=== PATIENT | male | born 1980 | race Hispanic/Latino ===

== ENCOUNTER 2019-09-25 17:02 | Observation (INO) | payer SELFPAY ==
[~2019-09-25] VITALS: Ht 177.8 cm; Wt 90.3 kg
[2019-09-25 20:00] VITALS: BP 129/83
[2019-09-25] MEDS ORDERED: AZITHROMYCIN 250MG/NS 100 ML 100 ML IV SCH ×2 (20:00→20:27)
[2019-09-25] MEDS ORDERED: ALBUTEROL/IPRATROPIUM 3 ML NEB NEB PRN (20:00)
[2019-09-25] MEDS: DEXTROSE 5%/0.9% SOD CHL 1,000 ML IV SCH (20:20)
[2019-09-25] MEDS: CEFTRIAXONE SOD 1 GM/NS 50 ML 50 ML IV SCH (20:30)
[2019-09-25 21:00] VITALS: BP 129/83
[2019-09-25] MEDS ORDERED: AZITHROMYCIN 500MG/NS 250 ML 250 ML ONE (21:33)
[2019-09-25 22:23] VITALS: BP 129/83
--- NOTE | 2019-09-25 22:37 | NUR ---
NOTIFIED DR. LOPEZ REGARDING CONSULT
--- NOTE | 2019-09-25 22:39 | NUR ---
NOTIFIED DR. LEVY REGARDING CONSULT
[2019-09-26] VITALS (8 sets, daily range): BP systolic 116–141; BP diastolic 67–85
[2019-09-26 05:04] LABS: BASOPHILS % 0.1 % (0.0-1.0); HEMATOCRIT 37.4 % (38.2-49.6); HEMOGLOBIN 12.6 g/dL (14.0-18.0); LYMPHOCYTES # (AUTO) 0.8 (1.0-3.2); LYMPHOCYTES % 8.5 % (18.0-39.1); MEAN CORPUSCULAR HGB CONC 33.7 g/dL (31-35); MONOCYTES # (AUTO) 0.6 (0.2-0.8); MONOCYTES % 6.2 % (4.4-11.3); NEUTROPHILS # (AUTO) 8.1 (2.1-6.9); NEUTROPHILS % 83.1 % (38.7-80.0); PLATELET COUNT 381 x10e3/uL (140-360); RED BLOOD COUNT 4.35 x10e6/uL (4.3-5.7); RED CELL DISTRIBUTION WIDTH 13.4 % (11.7-14.4)
[2019-09-26 05:45] LABS: ALANINE AMINOTRANSFERASE 125 IU/L (0-55); ALBUMIN 3.2 g/dL (3.5-5.0); ALBUMIN/GLOBULIN RATIO 0.8 (0.8-2.0); ALKALINE PHOSPHATASE 58 IU/L (40-150); ANION GAP 14.4 mmol/L (8-16); BLOOD UREA NITROGEN 18 mg/dL (7-26); BUN/CREATININE RATIO 24 (6-25); CARBON DIOXIDE 21 mmol/L (22-29); CHLORIDE 108 mmol/L (98-107); CREATININE, SERUM 0.74 mg/dL (0.72-1.25); EST GLOMERULAR FILTRATION RATE > 60 ML/MIN (60-); GLUCOSE 146 mg/dL (74-118); POTASSIUM 4.4 mmol/L (3.5-5.1); SODIUM 139 mmol/L (136-145)
[2019-09-26] MEDS: DEXTROSE 5%/0.9% SOD CHL 1,000 ML IV SCH ×2 (05:58→13:16)
--- NOTE | 2019-09-26 06:27 | NUR ---
NOTIFIED MEDICAL INSURANCE CLERK THAT PATIENT DO NOT HAVE COVID TEST ORDER. MEDICAL INSURANCE CLERK SAID TO PUT COVID TEST ORDER PER PROTOCOL.
--- NOTE | 2019-09-26 07:45 | NUR ---
infectious disease consultation Patient seen and examined chart reviewed events noted This is a 39-year-old [place] male dictated
--- NOTE | 2019-09-26 08:57 | NUR ---
GAVE PACKET OF INFORMATION WITH COMMUNITY [employer] FOR ASSISTANCE WITH LOW TO NO INCOME TO PATIENT. RESOURCES THAT PATIENT MAY BE ABLE TO FOLLOW UP UPON DISCHARGE. PT EDUCATED ON EACH RESOURCE AND UNDERSTANDING HOW TO FOLLOW UP TO SEE IF QUALIFIED FOR EACH RESOURCE.
[2019-09-26] MEDS: DEXAMETHASONE SOD PHOS INJ 4 MG/ML VIAL IV SCH (13:10)
--- NOTE | 2019-09-26 13:48 | Diagnostic Imaging Report ---
X-ray chest AP portable Comparison: None History: Cough and shortness of breath Findings: The image was taken with shallow inspiratory effort that accentuates the lung markings. Central airways unremarkable. Heart size likely accentuated because of the technique. Mediastinum appears enlarged likely because of the technique and shallow inspiration. There is no pleural effusion. There is no pneumothorax. There is presence of bilateral diffuse distribution pulmonary interstitial and airspace opacities, more pronounced in the right middle and lower lung zone and diffusely in the left lung. The differential diagnosis would include viral pneumonitis. Visualized skeletal structures are unremarkable. Upper abdomen unremarkable. Impression: Technically suboptimal exam. There is presence of bilateral airspace and interstitial opacities which raises a strong suspicion for viral pneumonitis such as Covid pneumonia. Clinical correlation is recommended. Signed by: Osmani Hurst MD on 09/26/2019 1:45 PM
--- NOTE | 2019-09-26 14:04 | Consultation ---
DATE OF CONSULTATION: HISTORY OF PRESENT ILLNESS: Mr. Martinez is a very pleasant gentleman of 39. He has been sick for 2 weeks. He had fever for a week and then the last week he did have progressive cough, progressive shortness of breath, got worse. The patient came here. He is currently on 4 L of oxygen. The patient is being admitted. PAST MEDICAL HISTORY: Denies. PAST SURGICAL HISTORY: Denies. ALLERGIES: NKA. SOCIAL HISTORY: There is no smoking, drug abuse, or alcohol abuse. FAMILY HISTORY: Otherwise unremarkable. PHYSICAL EXAMINATION: GENERAL: Currently alert, oriented. VITAL SIGNS: Stable, currently afebrile. HEENT: He is not icteric. NECK: Supple. CHEST: Crackles bilateral. HEART: S1-S2. ABDOMEN: Soft. Bowel sounds present. EXTREMITIES: No edema. SKIN: No rash. IMPRESSION: Coronavirus disease-19, superimposed bacterial pneumonia, and hypoxemia. Rocephin 1 g daily for 5 days, azithromycin 500 mg daily for 3 days, and Decadron 6 mg daily for 10 days. It is too late for remdesivir. We will put him on Lovenox 40 mg subcu q.24 hours. To monitor his oxygenation. Recheck CBC. Recheck Chem panel. We will check HIV. We will follow. MD NANDO Young/MODL /[id number]
--- NOTE | 2019-09-26 15:54 | Consultation ---
DATE OF CONSULTATION: Pulmonary Critical Care Consultation CHIEF COMPLAINT: Cough and dyspnea and COVID-19 infection. HISTORY OF PRESENT ILLNESS: The patient is a 39-year-old man. He reports being sick for about 8 days. He has noted worsening dyspnea. He started having a cough several days ago. He also had some fevers. He noticed that his oxygen saturation was 88% as an outpatient. He came to the ER and is now on 2 L. He still has some dyspnea, but is eager to go home. PAST MEDICAL HISTORY: 1. No prior history of asthma. 2. No prior cardiac disease. PAST SURGICAL HISTORY: Noncontributory. SOCIAL HISTORY: The patient is not a smoker. He is not a drinker. ALLERGIES: THERE ARE NO KNOWN DRUG ALLERGIES. FAMILY HISTORY: The patient is not reporting any significant family history. REVIEW OF SYSTEMS: GENERAL: The patient is afebrile. The saturation is 98% on 2 L. The blood pressure is 132/82 and the pulse is 63. HEENT: No facial swelling or erythema. The oropharynx normal. LYMPHATIC: No submandibular, cervical, or supraclavicular adenopathy. CARDIAC: Regular rate and rhythm with normal S1, S2. LUNGS: Auscultation of lungs reveals rhonchorous breath sounds bilaterally. There is no wheezing. ABDOMEN: Soft, nontender. There is no rebound or guarding. EXTREMITIES: No leg edema or calf tenderness. There is no cyanosis or clubbing. LABORATORY DATA: The white blood cell count is 9.7, hemoglobin is 12.6, and the platelet count is 381. The BUN to creatinine ratio is normal. The carbon dioxide is 21. The other electrolytes are within normal limits. RADIOGRAPHIC DATA: Chest x-ray shows bilateral airspace disease, suggestive of viral pneumonia. IMPRESSION: Viral pneumonia and coronavirus disease-19 infection. PLAN: 1. Continue oxygen and wean as tolerated. The patient will probably need oxygen at home. 2. Complete antibiotics. 3. Lovenox. 4. Monitor blood counts. Frederick Lopez MD LM/FRANCES /[id number]
[2019-09-26 16:19] LABS: HIV 1&2 AB SCREEN NON-REACTIVE (NONREACTIVE)
[2019-09-26] MEDS: CEFTRIAXONE SOD 1 GM/NS 50 ML 50 ML IV SCH (20:33)
[2019-09-26] MEDS ORDERED: AZITHROMYCIN 250MG/NS 100 ML 100 ML IV SCH (21:00)
[2019-09-27] MEDS: DEXTROSE 5%/0.9% SOD CHL 1,000 ML IV SCH ×3 (02:00→12:59)
[2019-09-27 04:29] VITALS: BP 123/75
[2019-09-27 05:26] LABS: BASOPHILS % 0.3 % (0.0-1.0); HEMATOCRIT 37.6 % (38.2-49.6); LYMPHOCYTES # (AUTO) 1.1 (1.0-3.2); MEAN CORPUSCULAR HEMOGLOBIN 30.5 pg (28-32); MEAN CORPUSCULAR HGB CONC 34.6 g/dL (31-35); MEAN CORPUSCULAR VOLUME 88.3 fL (81-99); MONOCYTES # (AUTO) 0.8 (0.2-0.8); MONOCYTES % 8.5 % (4.4-11.3); NEUTROPHILS # (AUTO) 7.4 (2.1-6.9); NEUTROPHILS % 75.9 % (38.7-80.0); PLATELET COUNT 323 x10e3/uL (140-360); RED BLOOD COUNT 4.26 x10e6/uL (4.3-5.7); RED CELL DISTRIBUTION WIDTH 14.6 % (11.7-14.4)
[2019-09-27 05:43] LABS: BLOOD UREA NITROGEN 15 mg/dL (7-26); BUN/CREATININE RATIO 21 (6-25); CALCIUM 8.8 mg/dL (8.4-10.2); CHLORIDE 105 mmol/L (98-107); CREATININE, SERUM 0.72 mg/dL (0.72-1.25); EST GLOMERULAR FILTRATION RATE > 60 ML/MIN (60-); GLUCOSE 128 mg/dL (74-118); POTASSIUM 4.3 mmol/L (3.5-5.1); SODIUM 137 mmol/L (136-145)
[2019-09-27 05:53] LABS: ANION GAP 14.3 mmol/L (8-16); CARBON DIOXIDE 22 mmol/L (22-29)
--- NOTE | 2019-09-27 08:45 | NUR ---
Infectious disease progress note September 27, 2019 Patient seen and examined chart reviewed and discussed with medical team that we did reviewed Patient on 2 L Physical examination currently alert oriented vitals stable afebrile HEENT currently She is heart S1-S2 extremities no edema Patient covid 19 patient has been sick for more than 2 weeks. Superimposed bacterial pneumonia seems to better from her hypoxemia Continue with antibiotic as ordered continue with Decadron continue with oxygen
[2019-09-27 10:59] VITALS: BP 115/74
[2019-09-27 11:29] VITALS: BP 128/88
[2019-09-27] MEDS: DEXAMETHASONE SOD PHOS INJ 4 MG/ML VIAL IV SCH (12:59)
--- NOTE | 2019-09-27 16:01 | NUR ---
OBS DAY 2 F/U. CALL TO NELLY SUAREZ TO DISCUSS PT DC PLAN. STATES THEY ARE STILL AWAITING DR. LEVY TO DETERMINE IF THE PT WILL DC. INFORMED HER MILDRED'S NOTE FROM 09/25 STATES PT TO RECEIVE ROCEPHIN X5 DAYS AND AZITH X3DAYS. BARRIER: SELF PAY ERICK WILL CALL DR. LEVY FOR DC PLAN CLARIFICATION. PT HAS BEEN CLEARED BY ATTENDING. Addendum: 09/27/19 at 1605 by Josephine Quintana CM RECEIVED CALL FROM ERICK STATING MILDRED WILL DC ON PO ABX.
[2019-09-27] MEDS ORDERED: AZITHROMYCIN250 MG PO (16:35)
[2019-09-27] MEDS ORDERED: AUGMENTIN 875-1 EACH PO (16:36)
--- NOTE | 2019-09-27 17:02 | NUR ---
dc instruction and Rx provided.
--- NOTE | 2019-09-27 18:20 | Progress Note ---
DATE: SUBJECTIVE: The patient who is a 39-year-old. He is feeling much better today. He is off oxygen, doing well. There is no fever, no chills. He was able to walk without oxygen. PHYSICAL EXAMINATION: GENERAL: He is currently alert. VITAL SIGNS: Stable, currently afebrile. HEENT: He is not icteric. NECK: Supple. CHEST: Clear bilateral. HEART: S1 and S2. ABDOMEN: Soft. Bowel sounds present. EXTREMITIES: No edema. SKIN: No rash. IMPRESSION: Respiratory failure, improved. Pneumonia, better. From Infectious Disease point of view patient could be discharged home with Augmentin and azithromycin. Since he is off oxygen, he does not need any steroid, he does not need any oxygen. Take cough syrup as needed. Follow up in three weeks. MD NANDO Young/FRANCES /[id number]
== END 2019-09-27 17:41 | disposition home or self-care (01) ==
LOC: IMCU 18:32
DX: U07.1 COVID-19 (principal); J12.89 Other viral pneumonia; J15.9 Unspecified bacterial pneumonia; J96.91 Respiratory failure, unspecified with hypoxia
CPT/HCPCS: 36415 ×2; 71045; 80048; 80053; 85025 ×2; 87390; G0378 ×3; G0433; G0435; J0456; J0696 ×2; J1100 ×2; J7042 ×3; U0002